=== PATIENT | male | born 1970 | race Caucasian/White ===

== ENCOUNTER 2017-06-18 19:29 | Emergency (ER) | payer OTHER ==
[2017-06-18 20:00] VITALS: BP 160/90
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
[2017-06-18] MEDS ORDERED: Acetaminophen/HYDROcodone 325-10 MG Tab PO ONE (20:51)
[2017-06-18] MEDS ORDERED: Take Home: Acetaminophen/HYDROcodone 325-10 MG, 5 Tab Pack PO ONE (21:09)
== END 2017-06-18 21:26 ==
LOC: VM.ED 19:29
DX: S62.616A Displaced fracture of proximal phalanx of right little finger, initial encounter for closed fracture (principal); M79.601 Pain in right arm; Y04.2XXA Assault by strike against or bumped into by another person, initial encounter
CPT/HCPCS: 29125; 73130; 99283; A9270

== ENCOUNTER 2017-06-19 16:10 | Emergency (ER) | payer OTHER ==
[2017-06-19] MEDS ORDERED: Acetaminophen/HYDROcodone 325-10 MG Tab PO ONE (16:14)
[2017-06-19] MEDS ORDERED: Ketorolac 30 MG/ML SDV IM ONE (16:14)
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
[2017-06-19] MEDS ORDERED: Nicotine 21 MG/24 Hr Patch TRDERM ONE (17:06)
[2017-06-19 17:48] VITALS: BP 143/90
== END 2017-06-19 17:05 ==
LOC: VM.ED 16:10
DX: M25.422 Effusion, left elbow (principal)
CPT/HCPCS: 73080; 96372; 99283; A9270; J1885